=== PATIENT | female | born 1960 | race Caucasian/White ===

== ENCOUNTER → 2016-11-05 | Outpatient (CLI) | payer MEDICARE ==
[~2016-11-05] VITALS: Ht 162.5 cm; Wt 86.2 kg
[~2016-11-05] MED LIST: 'PARAFON FORTE500 M1 PO; AMOXICILLIN500 MG PO; CIPRO500 MG PO; FLAGYL500 MG PO; Fioricet 325 MG1 TAB PO; HYDROCODONE BIT1 T11 PO; LAMICTAL100 MG PO; LEVOTHYROXIN0.125 MG PO; LISINOPRIL-HYDR1 TA1 PO; Lovenox30 MG/0.3 SC; MIRALAX17 GM/PACK PO; MYCOLOG CREAM 115 GM PO; MYCOLOG-II 10001 CRE TP; NORCO 5-325 TA1 EACH PO; Orphenadrine C100 MG PO; PERCOCET 325 MG1 TA3 PO; POTASSIUM20 MEQ PO; PREDNISONE10 MG PO; PREDNISONE20 M1 PO; PRILOSEC20 MG PO; RANITIDINE 7575 MG PO; ROBAXIN750 MG PO; SYNTHROID0.025 MG PO; TUMS 500500 MG PO; TYLENOL EXTRA500 M2 PO; VICO75300 PO; VICODIN ES 7.51 EACH PO; VISTARIL50 MG PO; VITAMIN D2000 IU PO; XANAX1 MG PO; ZOFRAN4 MG PO
[2016-11-05 11:06] VITALS: BP 121/77
== END | disposition home or self-care (01) ==
LOC: RAD 00:01 → SDC 11:00 → EDSTATUS 11-11 11:00
DX: Z01.818 Encounter for other preprocedural examination (principal); M67.431 Ganglion, right wrist; Z79.899 Other long term (current) drug therapy

== ENCOUNTER → 2016-11-05 | Outpatient (CLI) | payer MEDICARE ==
[2016-11-05 12:38] LABS: BASO # 0.1 10*3/uL (0.0-0.1); BASO % 0.7 % (0.0-1.0); EOS # 0.1 10*3/uL (0.0-0.4); EOS % 1.6 % (1.0-4.0); HEMATOCRIT 31.9 % (37.0-47.0); LYMPH % 25.1 % (27.0-41.0); MEAN CELL VOLUME 91.7 fl (81.0-99.0); MEAN CORPUSCULAR HGB 31.6 pg (27.0-31.0); MEAN CORPUSCULAR HGB CONC 34.5 g/dl (33.0-37.0); MEAN PLATELET VOLUME 10.4 fl (9.6-12.3); MONO # 0.4 10*3/uL (0.1-1.0); MONO % 5.1 % (3.0-9.0); NEUT # 5.4 10*3/uL (2.3-7.9); NEUT % 67.3 % (47.0-73.0); PLATELET COUNT AUTOMATED 351 10*3/uL (130-400); RED BLOOD COUNT 3.48 10*6/uL (4.10-5.10); RED CELL DISTRI WIDTH 13.8 % (0-14.5); WHITE BLOOD COUNT 8.1 10*3/uL (4.8-10.8)
[2016-11-05 12:48] LABS: BILIRUBIN NEGATIVE (NEGATIVE); BLOOD NEGATIVE (NEGATIVE); CLARITY CLEAR (CLEAR); COLOR YELLOW (YELLOW); GLUCOSE NEGATIVE (NEGATIVE); KETONE NEGATIVE (NEGATIVE); LEUKO ESTERASE NEGATIVE (NEGATIVE); NITRITE NEGATIVE (NEGATIVE); PROTEIN NEGATIVE (NEGATIVE); UROBILINOGEN 0.2 E.U./dl (0.2-1.0)
[2016-11-05 13:07] LABS: ALBUMIN 4.1 gm/dl (3.1-4.5); ALKALINE PHOSPHATASE 51 U/L (45-117); BILIRUBIN, TOTAL 0.3 mg/dl (0.2-1.0); BUN 7 mg/dl (7-24); CARBON DIOXIDE 28 mmol/L (21-32); CHLORIDE 105 mmol/L (98-107); CHOLESTEROL 234 mg/dL (<200); EST GLOM FILT AFRICAN AMERICAN > 60 ml/min; FREE T4 1.02 ng/dl (0.76-1.46); GLUCOSE 96 mg/dL (65-99); HDL CHOLESTEROL 43 mg/dl (40-60); LDL CHOLESTEROL 157 mg/dL (9-159); POTASSIUM 3.8 mmol/L (3.5-5.1); SGOT/AST 22 IU/L (3-35); SGPT/ALT 17 U/L (12-78); SODIUM 146 mmol/L (136-145); TOTAL PROTEIN 7.4 gm/dL (6.4-8.2); TRIGLYCERIDES 170 mg/dl (<150); VLDL CHOLESTEROL 34 mg/dL (6-40)
[2016-11-05 13:28] LABS: VITAMIN D, 25-HYDROXY 24.4 ng/mL (30-100)
[2016-11-05 13:29] LABS: FOLIC ACID 5.12 ng/mL (>5.38)
[2016-11-05 13:41] LABS: BACTERIA TRACE
== END | disposition home or self-care (01) ==
LOC: LAB 10:44
PROVIDERS: Orthopaedic Surgery
DX: E03.9 Hypothyroidism, unspecified (principal); E78.2 Mixed hyperlipidemia; E55.9 Vitamin D deficiency, unspecified; I10 Essential (primary) hypertension; R22.30 Localized swelling, mass and lump, unspecified upper limb; M67.431 Ganglion, right wrist; K57.30 Diverticulosis of large intestine without perforation or abscess without bleeding; M17.0 Bilateral primary osteoarthritis of knee; M19.079 Primary osteoarthritis, unspecified ankle and foot; M79.641 Pain in right hand; M54.2 Cervicalgia; F41.1 Generalized anxiety disorder; K21.0 Gastro-esophageal reflux disease with esophagitis; F17.210 Nicotine dependence, cigarettes, uncomplicated; G89.4 Chronic pain syndrome; Z68.31 Body mass index [BMI] 31.0-31.9, adult; Z68.34 Body mass index [BMI] 34.0-34.9, adult; Z79.899 Other long term (current) drug therapy

== ENCOUNTER 2017-01-19 15:03 | Inpatient (IN) | payer MEDICARE ==
[~2017-01-19] VITALS: Ht 162.6 cm; Wt 86.2 kg
[2017-01-19 15:10] VITALS: BP 150/87
[2017-01-19 15:24] LABS: BASO # 0.1 10*3/uL (0.0-0.1); BASO % 0.6 % (0.0-1.0); EOS # 0.1 10*3/uL (0.0-0.4); HEMATOCRIT 33.1 % (37.0-47.0); HEMOGLOBIN 11.7 g/dl (12.0-16.0); LYMPH # 2.4 10*3/uL (1.3-4.4); LYMPH % 28.8 % (27.0-41.0); MEAN CELL VOLUME 89.7 fl (81.0-99.0); MEAN CORPUSCULAR HGB 31.7 pg (27.0-31.0); MEAN CORPUSCULAR HGB CONC 35.3 g/dl (33.0-37.0); MEAN PLATELET VOLUME 10.3 fl (9.6-12.3); MONO # 0.5 10*3/uL (0.1-1.0); NEUT # 5.1 10*3/uL (2.3-7.9); PLATELET COUNT AUTOMATED 346 10*3/uL (130-400); RED BLOOD COUNT 3.69 10*6/uL (4.10-5.10); RED CELL DISTRI WIDTH 12.7 % (0-14.5); WHITE BLOOD COUNT 8.2 10*3/uL (4.8-10.8)
[2017-01-19 15:44] LABS: ALBUMIN 3.9 gm/dl (3.1-4.5); ALKALINE PHOSPHATASE 62 U/L (45-117); BUN 8 mg/dl (7-24); CHLORIDE 105 mmol/L (98-107); CREATININE 0.88 mg/dL (0.55-1.02); MAGNESIUM 2.2 mg/dL (1.5-2.1); POTASSIUM 3.5 mmol/L (3.5-5.1); SGOT/AST 21 IU/L (3-35); SGPT/ALT 14 U/L (12-78); SODIUM 143 mmol/L (136-145); TOTAL PROTEIN 7.7 gm/dL (6.4-8.2)
[2017-01-19 15:45] LABS: TROPONIN I < 0.015 ng/ml (<0.045)
[2017-01-19 16:06] LABS: ACT PARTIAL THROMBO TIME 23.3 SECONDS (20.8-31.5); INTERNATIONAL NORM RATIO 0.9 (2.0-3.5)
[2017-01-19 16:36] VITALS: BP 131/83
[2017-01-19 18:29] VITALS: BP 140/83
[2017-01-19 19:00] VITALS: BP 155/71
== END 2017-01-19 23:05 | disposition left against medical advice (07) | DRG 313 ==
LOC: ED 15:03 → EDHOLD 18:08 → 5E 18:20
PROVIDERS: Emergency Medicine; ADMIT Internal Medicine
DX: R07.9 Chest pain, unspecified (principal); F41.9 Anxiety disorder, unspecified; G89.29 Other chronic pain; M54.2 Cervicalgia; M25.579 Pain in unspecified ankle and joints of unspecified foot; R06.00 Dyspnea, unspecified; Z53.21 Procedure and treatment not carried out due to patient leaving prior to being seen by health care provider; Z88.6 Allergy status to analgesic agent; Z88.8 Allergy status to other drugs, medicaments and biological substances; Z79.899 Other long term (current) drug therapy; Z87.81 Personal history of (healed) traumatic fracture; Z90.710 Acquired absence of both cervix and uterus; Z80.9 Family history of malignant neoplasm, unspecified; Z82.49 Family history of ischemic heart disease and other diseases of the circulatory system; Z83.6 Family history of other diseases of the respiratory system

== ENCOUNTER 2017-04-14 15:57 | Emergency (ER) | payer MEDICARE ==
[~2017-04-14] VITALS: Ht 162.5 cm; Wt 81.6 kg
== END 2017-04-14 19:19 | disposition home or self-care (01) ==
LOC: ED 15:57
DX: M25.571 Pain in right ankle and joints of right foot (principal); G89.29 Other chronic pain; F10.10 Alcohol abuse, uncomplicated; Z88.5 Allergy status to narcotic agent; Z88.8 Allergy status to other drugs, medicaments and biological substances; Z79.899 Other long term (current) drug therapy

== ENCOUNTER 2017-08-14 06:55 | Emergency (ER) | payer MEDICARE, MEDICAID ==
[~2017-08-14] VITALS: Ht 162.5 cm; Wt 81.6 kg
[2017-08-14] MEDS ORDERED: PHENERGAN25 M3 PO (07:50)
[2017-08-14] MEDS ORDERED: ZITHROMAX250 MG PO (07:50)
[2017-08-14] MEDS ORDERED: PREDNISONE50 MG PO (07:50)
== END 2017-08-14 08:10 | disposition home or self-care (01) ==
LOC: ED 06:55
DX: J20.9 Acute bronchitis, unspecified (principal); R11.0 Nausea; F41.9 Anxiety disorder, unspecified; G89.29 Other chronic pain; Z88.6 Allergy status to analgesic agent

== ENCOUNTER 2017-11-12 17:52 | Emergency (ER) | payer MEDICARE, MEDICAID ==
[~2017-11-12] VITALS: Ht 162.5 cm; Wt 81.6 kg
[~2017-11-12 17:52] MED LIST changes: +PHENERGAN25 M3 PO; +PREDNISONE50 MG PO; +ZITHROMAX250 MG PO
== END 2017-11-12 20:35 | disposition home or self-care (01) ==
LOC: ED 17:52
DX: S83.91XA Sprain of unspecified site of right knee, initial encounter (principal); S00.83XA Contusion of other part of head, initial encounter; Z90.710 Acquired absence of both cervix and uterus; Z98.890 Other specified postprocedural states; Z88.6 Allergy status to analgesic agent; Z88.8 Allergy status to other drugs, medicaments and biological substances; W18.49XA Other slipping, tripping and stumbling without falling, initial encounter; Y93.89 Activity, other specified; Y92.89 Other specified places as the place of occurrence of the external cause; Y99.9 Unspecified external cause status

== ENCOUNTER 2018-05-22 08:03 | Emergency (ER) | payer MEDICARE, MEDICAID ==
[~2018-05-22] VITALS: Ht 160 cm; Wt 81.6 kg
--- NOTE | ~2018-05-22 | EKG ---
[place], [place] ELECTROCARDIOGRAM REPORT NAME: SHALINI SCHULTZ UNIT #: [id number] ROOM: DOCTOR: EPIPHANY DRAFT REPORT BIRTHDATE: [birth year] [facility] Test Date: 2018-05-22 Test Time: 08:24:32 Pat Name: SHALINI SCHULTZ Department: Room: Gender: F Air Tucker: Sarai Martin : 1960 Requested By: JIE BILLINGS Order Number: [id number] Reading MD: Johny Arrington MD Measurements Intervals [place] Rate: 76 P: 55 [place]: 149 QRS: 21 QRSD: 145 T: 31 QT: 477 QTc: 537 Interpretive Statements Sinus rhythm Right bundle branch block Baseline wander in lead(s) V2,V4 Electronically Signed On 05-22-2018 13:42:12 PST by Johny Arrington MD CM:EKGRPT:ELECTROCARDIOGRAM REPORT [id number] JIE NG DRAFT REPORT JIE BLILINGS M.D.
[2018-05-22 08:29] LABS: BASO # 0.1 10*3/uL (0.0-0.1); BASO % 0.6 % (0.0-1.0); EOS # 0.1 10*3/uL (0.0-0.4); EOS % 1.1 % (1.0-4.0); HEMOGLOBIN 11.9 g/dl (12.0-16.0); LYMPH # 2.8 10*3/uL (1.3-4.4); LYMPH % 26.7 % (27.0-41.0); MEAN CELL VOLUME 85.4 fl (81.0-99.0); MEAN CORPUSCULAR HGB 29.9 pg (27.0-31.0); MEAN PLATELET VOLUME 10.3 fl (9.6-12.3); MONO # 0.9 10*3/uL (0.1-1.0); MONO % 8.2 % (3.0-9.0); NEUT # 6.6 10*3/uL (2.3-7.9); NEUT % 62.9 % (47.0-73.0); PLATELET COUNT AUTOMATED 380 10*3/uL (130-400); RED BLOOD COUNT 3.98 10*6/uL (4.10-5.10); RED CELL DISTRI WIDTH 13.7 % (0-14.5); WHITE BLOOD COUNT 10.5 10*3/uL (4.8-10.8)
[2018-05-22 08:41] LABS: ACT PARTIAL THROMBO TIME 22.2 SECONDS (20.8-31.5)
[2018-05-22 08:45] LABS: ALBUMIN 3.8 gm/dl (3.1-4.5); CREATININE 2.06 mg/dL (0.55-1.02); TOTAL PROTEIN 7.8 gm/dL (6.4-8.2)
[2018-05-22 08:46] LABS: BILIRUBIN 1+ (NEGATIVE); BLOOD NEGATIVE (NEGATIVE); CLARITY CLOUDY (CLEAR); COLOR YELLOW (YELLOW); GLUCOSE NEGATIVE (NEGATIVE); KETONE NEGATIVE (NEGATIVE); LEUKO ESTERASE TRACE (NEGATIVE); NITRITE NEGATIVE (NEGATIVE); PH 5.5 (5.0-9.0); SPECIFIC GRAVITY >= 1.030 (1.005-1.030); UROBILINOGEN 0.2 E.U./dl (0.2-1.0)
[2018-05-22 08:49] LABS: URINE AMPHETAMINES < 1000 (1000ng/ml); URINE BARBITURATES < 200 (200ng/ml); URINE BENZODIAZEPINES > 200 (200ng/ml); URINE CANNABINOIDS (THC) < 50 (50ng/ml); URINE COCAINE < 300 (300ng/ml); URINE METHADONE < 300 (300ng/ml); URINE OPIATES > 300 (300ng/ml)
[2018-05-22 08:51] LABS: URINE PHENCYCLIDINE < 25 (25ng/ml)
[2018-05-22 09:03] LABS: BACTERIA 1+; MUCOUS TRACE; WBC 21-30 wbc/hpf (0-5)
== END 2018-05-22 09:22 | disposition short-term general hospital (02) ==
LOC: ED 08:03
PROVIDERS: Emergency Medicine
DX: I63.9 Cerebral infarction, unspecified (principal); G89.29 Other chronic pain; Z79.899 Other long term (current) drug therapy; Z88.6 Allergy status to analgesic agent

== ENCOUNTER → 2022-04-21 | Outpatient (CLI) | payer MEDICARE | END | disposition home or self-care (01) | LOC: MAMMO 13:30 | PROVIDERS: ATTEND Internal Medicine | DX: Z12.31 Encounter for screening mammogram for malignant neoplasm of breast (principal) ==

== ENCOUNTER → 2022-09-18 | Outpatient (CLI) | payer MEDICARE ==
[2022-09-18 12:37] LABS: BASO # 0.1 10*3/uL (0.0-0.1); BASO % 0.6 % (0.0-1.0); EOS # 0.1 10*3/uL (0.0-0.4); HEMATOCRIT 32.3 % (37.0-47.0); LYMPH # 1.9 10*3/uL (1.3-4.4); LYMPH % 22.7 % (27.0-41.0); MEAN CELL VOLUME 86.1 fl (81.0-99.0); MEAN CORPUSCULAR HGB 28.5 pg (27.0-31.0); MEAN CORPUSCULAR HGB CONC 33.1 g/dl (33.0-37.0); MEAN PLATELET VOLUME 9.4 fl (9.6-12.3); MONO # 0.5 10*3/uL (0.1-1.0); MONO % 5.9 % (3.0-9.0); NEUT # 5.7 10*3/uL (2.3-7.9); NEUT % 69.2 % (47.0-73.0); PLATELET COUNT AUTOMATED 345 10*3/uL (130-400); RED BLOOD COUNT 3.75 10*6/uL (4.10-5.10); RED CELL DISTRI WIDTH 13.7 % (0-14.5); WHITE BLOOD COUNT 8.3 10*3/uL (4.8-10.8)
[2022-09-18 13:18] LABS: VITAMIN D, 25-HYDROXY 33.8 ng/mL (30-100)
[2022-09-18 13:49] LABS: ALKALINE PHOSPHATASE 93 U/L (46-116); BUN 6 mg/dl (9-23); CHLORIDE 105 mmol/L (98-107); CHOLESTEROL 223 mg/dL (<200); FREE T4 1.11 ng/dl (0.89-1.76); LDL CHOLESTEROL 147 mg/dL (9-159); POTASSIUM 3.1 mmol/L (3.4-5.1); SGPT/ALT 7 U/L (10-49); THYROID STIM HORMONE (HS) 0.102 uIU/ml (0.550-4.780); TOTAL PROTEIN 7.7 gm/dL (6.0-8.0); TRIGLYCERIDES 172 mg/dl (<150)
== END | disposition home or self-care (01) ==
LOC: LAB 12:19
PROVIDERS: ATTEND Internal Medicine
DX: Z13.228 Encounter for screening for other metabolic disorders (principal); Z13.29 Encounter for screening for other suspected endocrine disorder; Z13.0 Encounter for screening for diseases of the blood and blood-forming organs and certain disorders involving the immune mechanism; Z13.21 Encounter for screening for nutritional disorder; Z13.220 Encounter for screening for lipoid disorders; Z13.6 Encounter for screening for cardiovascular disorders; Z13.89 Encounter for screening for other disorder; Z13.9 Encounter for screening, unspecified; I10 Essential (primary) hypertension; E78.2 Mixed hyperlipidemia; E03.9 Hypothyroidism, unspecified; E55.9 Vitamin D deficiency, unspecified

== ENCOUNTER → 2022-11-26 | Outpatient (CLI) | payer MEDICARE, MEDICAID ==
[~2022-11-26] MED LIST changes: +ALPRAZOLAM0.5 M3 PO; +ATORVASTATIN CA40 M1 PO; +BUSPAR15 MG PO; +HYDROCODONE-AC1 EAC2 PO; +HYDROXYZINE PAM25 M1 PO; +LEVOTHYROXINE125 MCG PO; +METHYLPHENIDATE20 M2 PO; +OMEPRAZOLE MAGN20 MG PO; +ZESTORETIC 20-1 EACH PO
[2022-11-26 14:36] LABS: BASO % 0.5 % (0.0-1.0); EOS # 0.1 10*3/uL (0.0-0.4); EOS % 1.6 % (1.0-4.0); HEMATOCRIT 28.6 % (37.0-47.0); LYMPH # 3.1 10*3/uL (1.3-4.4); LYMPH % 37.6 % (27.0-41.0); MEAN CELL VOLUME 83.9 fl (81.0-99.0); MEAN CORPUSCULAR HGB 28.7 pg (27.0-31.0); MEAN CORPUSCULAR HGB CONC 34.3 g/dl (33.0-37.0); MEAN PLATELET VOLUME 9.4 fl (9.6-12.3); MONO # 0.5 10*3/uL (0.1-1.0); MONO % 5.9 % (3.0-9.0); NEUT # 4.4 10*3/uL (2.3-7.9); PLATELET COUNT AUTOMATED 448 10*3/uL (130-400); RED BLOOD COUNT 3.41 10*6/uL (4.10-5.10); RED CELL DISTRI WIDTH 14.2 % (0-14.5); WHITE BLOOD COUNT 8.2 10*3/uL (4.8-10.8)
[2022-11-26 15:03] LABS: VITAMIN D, 25-HYDROXY 36.5 ng/mL (30-100)
[2022-11-26 15:04] LABS: ALKALINE PHOSPHATASE 76 U/L (46-116); BUN 7 mg/dl (9-23); CHLORIDE 103 mmol/L (98-107); CHOLESTEROL 155 mg/dL (<200); FREE T4 1.23 ng/dl (0.89-1.76); LDL CHOLESTEROL 70 mg/dL (9-159); SGPT/ALT 8 U/L (10-49); TOTAL PROTEIN 6.9 gm/dL (6.0-8.0); TRIGLYCERIDES 225 mg/dl (<150)
== END | disposition home or self-care (01) ==
LOC: LAB 14:07
PROVIDERS: ATTEND Internal Medicine
DX: Z13.21 Encounter for screening for nutritional disorder (principal); Z13.0 Encounter for screening for diseases of the blood and blood-forming organs and certain disorders involving the immune mechanism; Z13.1 Encounter for screening for diabetes mellitus; Z13.220 Encounter for screening for lipoid disorders; Z13.228 Encounter for screening for other metabolic disorders; Z13.6 Encounter for screening for cardiovascular disorders; Z13.89 Encounter for screening for other disorder; I10 Essential (primary) hypertension; R53.81 Other malaise; R79.89 Other specified abnormal findings of blood chemistry; E55.9 Vitamin D deficiency, unspecified; D51.9 Vitamin B12 deficiency anemia, unspecified; E03.9 Hypothyroidism, unspecified; D52.9 Folate deficiency anemia, unspecified

== ENCOUNTER → 2023-09-28 | Outpatient (CLI) | payer MEDICARE, MEDICAID | END | disposition home or self-care (01) | LOC: ORTHO 09-24 16:14 | PROVIDERS: ATTEND Orthopaedic Surgery | DX: M19.042 Primary osteoarthritis, left hand (principal) ==

== ENCOUNTER → 2023-10-19 | Outpatient (CLI) | payer MEDICARE, MEDICAID | END | disposition home or self-care (01) | LOC: ORTHO 02:35 | PROVIDERS: ATTEND Orthopaedic Surgery | DX: S82.201A Unspecified fracture of shaft of right tibia, initial encounter for closed fracture (principal); X58.XXXA Exposure to other specified factors, initial encounter; Y93.89 Activity, other specified; Y92.89 Other specified places as the place of occurrence of the external cause; Y99.8 Other external cause status ==

== ENCOUNTER 2024-08-19 16:44 | Emergency (ER) | payer MEDICARE, MEDICAID ==
[~2024-08-19] VITALS: Ht 162.5 cm; Wt 79.4 kg
[2024-08-19] MEDS ORDERED: Meclizine Hydrochloride 25 MG TAB PO ONE (17:05)
[2024-08-19 17:30] LABS: BASO # 0.1 10*3/uL (0.0-0.1); BASO % 0.4 % (0.0-1.0); EOS # 0.1 10*3/uL (0.0-0.4); EOS % 0.6 % (1.0-4.0); HEMATOCRIT 33.6 % (37.0-47.0); MEAN CELL VOLUME 84.4 fl (81.0-99.0); MEAN CORPUSCULAR HGB 30.2 pg (27.0-31.0); MEAN CORPUSCULAR HGB CONC 35.7 g/dl (33.0-37.0); MEAN PLATELET VOLUME 10.3 fl (9.6-12.3); MONO # 0.8 10*3/uL (0.1-1.0); MONO % 5.8 % (3.0-9.0); NEUT # 8.3 10*3/uL (2.3-7.9); NEUT % 64.1 % (47.0-73.0); PLATELET COUNT AUTOMATED 375 10*3/uL (130-400); RED BLOOD COUNT 3.98 10*6/uL (4.10-5.10); RED CELL DISTRI WIDTH 12.4 % (0-14.5)
[2024-08-19 17:48] LABS: BUN 8 mg/dl (9-23); CHLORIDE 100 mmol/L (98-107); POTASSIUM 2.5 mmol/L (3.4-5.1)
[2024-08-19] MEDS ORDERED: POTASSIUM CHLORIDE 20 MEQ TAB PO ONE (17:55)
[2024-08-19 18:00] LABS: BILIRUBIN Negative (Negative); BLOOD Negative (Negative); CLARITY Clear (Clear); COLOR Yellow (Yellow); GLUCOSE Negative (Negative); KETONE Negative (Negative); LEUKO ESTERASE Negative (Negative); NITRITE Negative (Negative); SPECIFIC GRAVITY <= 1.005 (1.001-1.030); UROBILINOGEN 0.2 E.U./dl (0.0-1.0)
[2024-08-19 18:17] LABS: EPITHELIAL CELLS 0-2; RBC 0-2 rbc/hpf (0-2); WBC 0-2 wbc/hpf (0-5)
[2024-08-19] MEDS ORDERED: Meclizine25 MG PO (18:25)
[2024-08-19] MEDS ORDERED: POTASSIUM CHLO20 ME3 PO (18:25)
== END 2024-08-19 18:35 | disposition home or self-care (01) ==
LOC: ED 16:44
PROVIDERS: Physician Assistant Medical
DX: R42 Dizziness and giddiness (principal); E87.6 Hypokalemia; H61.22 Impacted cerumen, left ear; I10 Essential (primary) hypertension; E78.5 Hyperlipidemia, unspecified; F41.9 Anxiety disorder, unspecified; E03.9 Hypothyroidism, unspecified; G89.29 Other chronic pain; Z88.8 Allergy status to other drugs, medicaments and biological substances; Z88.6 Allergy status to analgesic agent; Z79.899 Other long term (current) drug therapy; Z90.710 Acquired absence of both cervix and uterus; Z86.73 Personal history of transient ischemic attack (TIA), and cerebral infarction without residual deficits

== ENCOUNTER 2024-11-05 10:05 | Emergency (ER) | payer MEDICARE, MEDICAID ==
[~2024-11-05] VITALS: Ht 162.5 cm; Wt 81.6 kg
[~2024-11-05 10:05] MED LIST changes: +Meclizine25 MG PO; +POTASSIUM CHLO20 ME3 PO
[2024-11-05] MEDS ORDERED: Lidocaine Hydrochloride 5 ML AMP IJ ONE (10:40)
[2024-11-05] MEDS ORDERED: Lidocaine Hydrochloride 15 ML UDC PO ONE (11:15)
[2024-11-05] MEDS ORDERED: AMOX-CLAV 875-1 EACH PO ×2 (11:18→11:26)
[2024-11-05] MEDS ORDERED: BENZOCAINE 20% 11.9 GM GEL T ONE (11:20)
== END 2024-11-05 11:30 | disposition home or self-care (01) ==
LOC: ED 10:05
DX: K04.7 Periapical abscess without sinus (principal); K02.9 Dental caries, unspecified; E03.9 Hypothyroidism, unspecified; G43.909 Migraine, unspecified, not intractable, without status migrainosus; Z79.899 Other long term (current) drug therapy; Z88.6 Allergy status to analgesic agent; Z88.8 Allergy status to other drugs, medicaments and biological substances; Z90.710 Acquired absence of both cervix and uterus; Z98.890 Other specified postprocedural states